=== PATIENT | female | born 1950 | race African-American/Black ===

== ENCOUNTER → 2020-10-20 | Outpatient (CLI) | payer MEDICARE, BC ==
[~2020-10-20] MED LIST: AZEL137S7 BOTHNSTRLS; AZEL6DRO5 BOTHEYE; CALCIUM; CARB30DR BOTHEYE; CHOL200026 PO; CINN1CAP PO; CLAR10 PO; DICL100G16 TP; FISH OIL; FLUT9.9S BOTHNSTRLS; GUAI-741 PO; HYDR25SU7 RC; LOSA100T32 PO; MENT118G TP; PHEN51CR24 RC; TC1U15 TOP; VALS1TAB34 PO; [UNRECOGNIZED DRUG - CODE] PO; [UNRECOGNIZED DRUG - CODE] TP; [UNRECOGNIZED DRUG - OTHER]; coq10 PO; krill oil PO; turmeric PO
== END | disposition home or self-care (01) ==
LOC: LAB 08:30
PROVIDERS: ATTEND Ophthalmology
DX: Z01.812 Encounter for preprocedural laboratory examination (principal); Z20.822 Contact with and (suspected) exposure to COVID-19
CPT/HCPCS: 87426

== ENCOUNTER → 2020-10-21 | Day surgery (SDC) | payer MEDICARE, BC ==
[~2020-10-21] VITALS: Ht 160 cm; Wt 79.8 kg
[~2020-10-21] MED LIST changes: +BALANCED SALT IRRIG SOLN 15ML ONE; +BALANCED SALT IRRIG SOLN COMB1 500ML OP SCH; +CIPROFLOXACIN 0.3% OPHTH SOLN 2.5ML ONE; +FENTANYL CITRATE/PF 50MCG/ML 2ML VIAL ONE; +KETOROLAC 30MG/ML VIAL ONE; +LACTATED RINGERS 1,000 ML IV SCH; +LIDOCAINE HCL/PF 2% 20 MG/ML 10ML VIAL ONE; +MIDAZOLAM HCL 2 MG/2 ML VIAL ONE; +NEO/POLYMYX B SULF/DEXAMETH OPHTH OINT 3.5GM ONE; +PHENYLEPHRINE HCL 10% OPHTH DROPS 5ML ONE; +PHENYLEPHRINE HCL 10% OPHTH DROPS 5ML RIGHTEYE SCH; +PREDNISOLONE ACETATE 1% OPHTH DROPS 5ML ONE; +TETRACAINE 0.5% OPHTH DROPS 4ML ONE; +TROPICAMIDE 1% OPHTH DROPS 15ML ONE; +TROPICAMIDE 1% OPHTH DROPS 15ML RIGHTEYE SCH
== END | disposition home or self-care (01) ==
LOC: OR 07:31
PROVIDERS: ATTEND Ophthalmology
DX: H25.89 Other age-related cataract (principal); I10 Essential (primary) hypertension; M19.90 Unspecified osteoarthritis, unspecified site; Z90.711 Acquired absence of uterus with remaining cervical stump; Z79.899 Other long term (current) drug therapy; Z98.890 Other specified postprocedural states; Z88.0 Allergy status to penicillin; Z88.1 Allergy status to other antibiotic agents; Z88.8 Allergy status to other drugs, medicaments and biological substances
CPT/HCPCS: 66984; J1885; J2250; J3010; J3490; V2632